=== PATIENT | female | born 1975 | race Hispanic/Latino ===

== ENCOUNTER → 2017-12-19 | Day surgery (SDC) | payer OTHER ==
--- NOTE | 2017-12-15 16:25 | Diagnostic Imaging Report ---
PROCEDURE: Frontal and lateral views of the chest. COMPARISON: None. INDICATIONS: PRE OPERATIVE CHEST XRAY FOR FOOT SURGERY FINDINGS: Lines/tubes: None. Lungs: The lungs are well inflated and clear. There is no evidence of pneumonia or pulmonary edema. Pleura: There is no pleural effusion or pneumothorax. Heart and mediastinum: The heart and the mediastinum are normal. Bones: No acute bony abnormality. IMPRESSION: No acute cardiopulmonary disease. Dictated by: Goldy Farah M.D. on 12/15/2017 at 16:28 Electronically approved by: Goldy Farah M.D. on 12/15/2017 at 16:28
[~2017-12-19] MED LIST: BUPIVACAINE HCL 0.5% 10ML MPF VIAL INJ ONE; CEFAZOLIN SOD 2 GM/D5W 50ML 50 ML IV ONE; DEXAMETHASONE SOD PHOS INJ 4 MG/ML VIAL ONE; FENTANYL CITRATE/PF 100MCG/2 ML INJ ONE; KETOROLAC TROMETHAMINE 30 MG/ML VIAL ONE; LEVOCETIRIZINE D5 MG PO; LIDOCAINE HCL 2% LOCAL INJ 5 ML SDV VIAL INJ ONE; LOESTRIN FE 1-1 EACH PO; METOCLOPRAMIDE HCL 10 MG/2ML VIAL ONE; MIDAZOLAM HCL 2 MG/2 ML VIAL ONE; MONTELUKAST SOD10 MG PO; NEOMYCIN/POLYMYX/BACITR OINT 0.9 GM PKT ONE; OMEPRAZOLE40 MG PO; ONDANSETRON HCL INJ 2 MG/ML VIAL ONE; PROMETHAZINE HCL (IM) 25 MG/ML VIAL ONE; PROPOFOL IV EMULSION 10 MG/ML 20 ML VIAL ONE; SEVOFLURANE INHAL SOLN 250 ML PEN BTL ONE
--- NOTE | 2017-12-21 08:22 | Operative Report ---
DATE OF PROCEDURE: December 19, 2017 PREOPERATIVE DIAGNOSES 1. Hallux abductor valgus of the left foot. 2. Tailor's bunion of the left foot. 3. Plantar flexed 2nd metatarsal, left foot with underlying lesions, porokeratosis, left foot. POSTOPERATIVE DIAGNOSES ANESTHESIA: General endotracheal. HEMOSTASIS: Left thigh tourniquet at 350 mmHg. PROCEDURES 1. Modified Anshu bunionectomy of the left foot. 2. Tailor's bunionectomy, left foot. 3. Luis Eduardo osteotomy of the left 2nd metatarsal. 4. Excision of benign neoplasm, plantar aspect of the left foot. PROCEDURE IN DETAIL: The patient was taken to the operating room in a mildly sedated state and placed on the operating table in the supine position. Following induction of general anesthetic, the left lower extremity was elevated to 60 degrees to exsanguinate before inflating the pneumatic thigh tourniquet to 350 mm for hemostasis. The left lower extremity was placed on the operating table prior to performing the following procedure. PROCEDURE #1: Modified Anshu bunionectomy, left foot. A linear longitudinal incision was made overlying the dorsomedial aspect of the 1st metatarsophalangeal joint. The incision was deepened via sharp and blunt dissection over the dorsal capsular structure. Care was taken to identify and retract all vital structures encountered. The head of the 1st metatarsal below the surgical site was remodeled utilizing an oscillating saw. A [id number] V-osteotomy was placed at the apex distally and base proximally to allow for relative shift lateral santos of the more proximal segment, which was then impacted and stabilized with 2 cortical bone screws. The area was then further remodeled with an oscillating saw, rotary bur, and irrigated with copious amounts of sterile saline solution. Deep closure was 3-0 Vicryl and skin closure with 4-0 Prolene in a continuous interlocking fashion. Attention was then directed to the 5th metatarsal area. A linear longitudinal incision was made overlying the tailor's bunion. Lateral bunionectomy was performed of the 5th met head with an oscillating saw and rotary bur. Irrigated with copious amounts of sterile saline solution. Deep closure was 3-Vicryl. Subcutaneous closure was 4-0 Vicryl and skin closure with 4-0 nylon. Attention was then directed to the 2nd metatarsal where a linear longitudinal incision was made. A Luis Eduardo osteotomy was performed and fixated. It was remodeled. Deep closure was 3-0 Vicryl. Subcutaneous closure was 4-0 Vicryl. Excellent alignment was noted. Attention was directed to the plantar aspect of the foot where 2 separate large benign neoplasms were noted. These were excised and the base cauterized with electrocautery. The areas of surgery were all blocked 0.5 Marcaine and Decadron [place]. Release of the pneumatic thigh tourniquet showed a normal hyperemic flush to all digits of the left foot. The patient left the operating room with vital signs stable and in apparent satisfactory condition having tolerated the anesthetic and procedure very well. Job#: [id number] ALISSA
== END | disposition home or self-care (01) ==
LOC: OR 10:23
PROVIDERS: ATTEND Podiatrist Foot Surgery
DX: M20.12 Hallux valgus (acquired), left foot (principal); M21.6X2 Other acquired deformities of left foot; M21.622 Bunionette of left foot; D23.72 Other benign neoplasm of skin of left lower limb, including hip; Z88.0 Allergy status to penicillin; K21.9 Gastro-esophageal reflux disease without esophagitis
CPT/HCPCS: 11420; 28110; 28296; 28308; 71046; 76001; 81025; 93005; J1100; J1885; J2001; J2250; J2405; J2550; J2765